=== PATIENT | male | born 1995 | race Two or more races ===

== ENCOUNTER 2025-01-29 13:10 | Inpatient (IN) | payer OTHER ==
[~2025-01-29] VITALS: Ht 170.2 cm; Wt 62.8 kg
[2025-01-29] MEDS: NALOXONE HCL 1 MG/ML 2 ML SYRINGE IVP ONE (14:13)
[2025-01-29] MEDS: SODIUM CHLORIDE 0.9% 1,000 ML IV ONE (14:13)
[2025-01-29 14:32] LABS: BASOPHILS % (AUTO) 0.3 % (0.0-2.0); EOSINOPHILS % (AUTO) 1.8 % (1.0-6.0); HEMATOCRIT 44.7 % (41-53); HEMOGLOBIN 15.1 g/dL (13.5-17.5); LYMPHOCYTES # (AUTO) 2.5 K/uL (1.0-4.8); LYMPHOCYTES % (AUTO) 48.7 % (22.0-44.0); MEAN CORPUSCULAR HEMOGLOBIN 32.3 pg (26.0-34.0); MEAN CORPUSCULAR HGB CONC 33.7 G/dL (31.0-37.0); MEAN CORPUSCULAR VOLUME 96 fL (80-100); MONOCYTES # (AUTO) 0.5 K/uL (0.1-1.0); NEUTROPHILS # (AUTO) 2.1 K/uL (1.8-7.7); NEUTROPHILS % (AUTO) 40.2 % (40.0-70.0); PLATELET COUNT (AUTO) 257 K/uL (150-450); RED BLOOD CELL COUNT(AUTO) 4.66 MIL/uL (4.50-5.90); RED CELL DISTRIBUTION WIDTH 13.8 % (11.5-14.5); WHITE BLOOD COUNT (AUTO) 5.1 K/uL (4.5-11.0)
[2025-01-29 14:41] LABS: ANION GAP 6 mmol/L (8-16); CALCIUM, TOTAL 8.9 mg/dL (8.8-10.5); CARBON DIOXIDE 28 mmol/L (22-29); CHLORIDE 104 mmol/L (98-107); CREATININE 0.68 mg/dL (0.60-1.30); GLOMERULAR FILTR. RATE CALC > 60 mL/min (>60); GLUCOSE,RANDOM 102 mg/dL (70-110); POTASSIUM 3.6 mmol/L (3.5-5.1); SODIUM SERUM 138 mmol/L (136-145); UREA NITROGEN, BLOOD 8 mg/dL (7-18)
[2025-01-29] MEDS: PIPERACILLIN/TAZO 3.375 GM/D5W 50 ML IV ONE (15:31)
[2025-01-29 15:54] LABS: ALCOHOL, URINE DRUG SCREEN NEGATIVE (NEGATIVE); AMPHET/METH SCREEN,URINE POSITIVE (NEGATIVE); BARBITURATE SCREEN, URINE NEGATIVE (NEGATIVE); BENZODIAZEPINES SCREEN,URINE NEGATIVE (NEGATIVE); CANNABINOID SCREEN,URINE POSITIVE (NEGATIVE); COCAINE SCREEN,URINE NEGATIVE (NEGATIVE); METHADONE SCREEN, URINE NEGATIVE (NEGATIVE); OPIATE SCREEN,URINE NEGATIVE (NEGATIVE); PHENCYCLIDINE SCREEN,URINE NEGATIVE (NEGATIVE)
[2025-01-29 15:55] LABS: LACTIC ACID 1.1 mmol/L (0.4-2.0)
[2025-01-29] MEDS ORDERED: BISACODYL 10 MG RECTAL RECTAL SUPPOSITORY PR PRN (18:45)
[2025-01-29] MEDS ORDERED: ACETAMINOPHEN 325 MG TABLET PO PRN (18:45)
[2025-01-29] MEDS ORDERED: ONDANSETRON HCL 4 MG/2 ML VIAL IVP PRN (18:45)
[2025-01-29] MEDS ORDERED: ZOLPIDEM TARTRATE 5 MG TABLET PO PRN (18:45)
[2025-01-29] MEDS ORDERED: MAGNESIUM HYDROXIDE SUSPENSION 30 ML UDCUP PO PRN (18:45)
[2025-01-29 19:50] VITALS: BP 135/76; PULSE 70; RESP 16; TEMP 97.7; O2SAT 100
[2025-01-29] MEDS ORDERED: SODIUM CHLORIDE 0.9% 250 ML IV ONE (20:26)
[2025-01-29] MEDS: DOCUSATE SODIUM 100 MG CAPSULE PO SCH (21:00)
[2025-01-29] MEDS: VANCOMYCIN 1.5 GM/WATER(PEG) 300 ML IV ONE (21:08)
[2025-01-29] MEDS: PIPERACILLIN/TAZO 3.375 GM/D5W 50 ML IV SCH (23:35)
[2025-01-29] MEDS: HEPARIN SODIUM,PORCINE 5,000 UNITS/ML VIAL SQ SCH (23:42)
[2025-01-30] VITALS: BP 134/83; PULSE 63; RESP 18; TEMP 97.7; O2SAT 100
[2025-01-30 04:00] VITALS: BP 117/89; PULSE 79; RESP 18; TEMP 97.9; O2SAT 98
[2025-01-30 07:17] LABS: ANION GAP 6 mmol/L (8-16); CALCIUM, TOTAL 8.7 mg/dL (8.8-10.5); CARBON DIOXIDE 28 mmol/L (22-29); CHLORIDE 107 mmol/L (98-107); GLOMERULAR FILTR. RATE CALC > 60 mL/min (>60); GLUCOSE,RANDOM 89 mg/dL (70-110); POTASSIUM 3.8 mmol/L (3.5-5.1); SODIUM SERUM 141 mmol/L (136-145); UREA NITROGEN, BLOOD 6 mg/dL (7-18)
[2025-01-30 07:31] VITALS: BP 133/95; PULSE 68; RESP 1; TEMP 98.4; O2SAT 100
[2025-01-30] MEDS ORDERED: VANCOMYCIN 1.25 GM/WATER(PEG) 250 ML IV SCH (08:00)
[2025-01-30] MEDS: PANTOPRAZOLE SODIUM 40 MG DR TABLET PO SCH (09:21)
[2025-01-30] MEDS: VANCOMYCIN HCL 1.25 GM in DEXTROSE 5%-WATER 250 ML IV SCH (09:21)
[2025-01-30] MEDS: VANCOMYCIN 1GM/WATER(PEG/NADA) 200 ML IV SCH (18:26)
[2025-01-30 20:23] VITALS: BP 120/67; PULSE 83; RESP 19; TEMP 97.4; O2SAT 99
[2025-01-30] MEDS ORDERED: SODIUM CHLORIDE 0.9% 250 ML IV ONE (22:26)
[2025-01-31 04:18] VITALS: BP 105/60; PULSE 89; RESP 19; TEMP 97.5; O2SAT 99
[2025-01-31 08:34] LABS: ANION GAP 9 mmol/L (8-16); CALCIUM, TOTAL 8.8 mg/dL (8.8-10.5); CARBON DIOXIDE 25 mmol/L (22-29); CHLORIDE 104 mmol/L (98-107); CREATININE 0.84 mg/dL (0.60-1.30); GLOMERULAR FILTR. RATE CALC > 60 mL/min (>60); GLUCOSE,RANDOM 87 mg/dL (70-110); POTASSIUM 3.7 mmol/L (3.5-5.1); SODIUM SERUM 138 mmol/L (136-145); UREA NITROGEN, BLOOD 9 mg/dL (7-18); VANCOMYCIN,RANDOM 17.5 mcg/mL (25.0-50.0)
[2025-01-31 09:01] VITALS: BP 125/91; PULSE 82; RESP 18; TEMP 97.7; O2SAT 99
== END 2025-01-31 12:00 | disposition left against medical advice (07) | DRG 917 ==
LOC: EMS 13:10 → EDH 15:27 → 5S 19:53 → 6S 01-30 21:44
PROVIDERS: ADMIT Internal Medicine; ATTEND Internal Medicine
DX: T50.991A Poisoning by other drugs, medicaments and biological substances, accidental (unintentional), initial encounter (principal); G92.8 Other toxic encephalopathy; L03.011 Cellulitis of right finger; F19.10 Other psychoactive substance abuse, uncomplicated; Y92.89 Other specified places as the place of occurrence of the external cause; Z53.29 Procedure and treatment not carried out because of patient's decision for other reasons
CPT/HCPCS: 74176; 80048; 80202; 80307; 83605; 85025; 87040; 87070; 87205; 96361; 96365; 96375; 99285; J1644; J2310; J2543; J7030; J7050; J7060; 36415-L1; 36415-TC